=== PATIENT | female | born 1990 | race Caucasian/White ===

== ENCOUNTER → 2021-06-21 14:39 | Outpatient (BNVA) | payer MEDICAID, SELFPAY | PROVIDERS: Visit Provider Nurse Practitioner | DX: R39.9 Unspecified symptoms and signs involving the genitourinary system (principal); N89.8 Other specified noninflammatory disorders of vagina | CPT/HCPCS: 81000; 87491; 87591; 87661 ==

== ENCOUNTER → 2022-02-27 09:07 | Outpatient (BNVA) | payer MEDICAID, SELFPAY | PROVIDERS: Referring Provider Family Medicine; Visit Provider Nurse Practitioner | DX: G40.909 Epilepsy, unspecified, not intractable, without status epilepticus (principal); G43.909 Migraine, unspecified, not intractable, without status migrainosus; G62.9 Polyneuropathy, unspecified | CPT/HCPCS: 99204 ==

== ENCOUNTER 2022-02-27 13:38 | Emergency (ER) | payer MEDICAID, SELFPAY ==
--- NOTE | 2022-02-27 13:43 | XR_ITS ---
WS: [id number] Chest 2 views, 02/27/2022 Clinical Data: cp and dyspnea Comparison: None. Findings: No nodules or masses are seen. There is a tiny left pleural effusion The heart is normal. T he pulmonary vascularity is not increased. No pneumonia or pneumothorax is seen. XR/XR chest 2V* 15286 Impression: Small left pleural effusion.
[2022-02-27 13:44] VITALS: BP 147/83; PULSE 102; RESP 16; TEMP 36.8; O2SAT 91
--- NOTE | 2022-02-27 13:44 | ECG_ITS ---
[facility] Test Date: 2022-02-27 Pat Name: Delma Gibbons Department: Room: Gender: Female Relay Adjuster: : 1990 Requested By: Dariel Valdez Order Number: [id number] Theresa MD: Daysi Berger M.D. Measurements Intervals [place] Rate: 77 P: 72 ND: 132 QRS: 78 QRSD: 78 T: 69 QT: 353 QTc: 401 Interpretive Statements SINUS RHYTHM WITH SINUS ARRHYTHMIA NONSPECIFIC ST & T-WAVE ABNORMALITY No previous ECG available for comparison Electronically Signed On 02-27-2022 19:44:46 CDT by Daysi Berger M.D. [id number]
--- NOTE | 2022-02-27 14:51 | ED_ITS ---
HPI - General Adult General: Chief complaint: Shortness of Breath/Dyspnea Stated complaint: chest pains and sob Time Seen by Provider: 02/27/22 14:50 History of Present Illness: Patient is a 31-year-old female with a history of asthma presenting to the emergency room with concerns of cough and wheezing x2 days. Patient tells me that her child is sick at home. And she has been developing symptoms last 2 days. Denies any fever chills, productive phlegm, chest pain shortness of breath, palpitation nausea/vomiting, diarrhea melena hematochezia. Patient like to be tested for COVID today. Onset:2 days ago Duration:2 days Location:home Severity:mild Associated symptoms: Deny chest pain, dyspnea, nausea, rash, palpitations or vomiting Review of Systems Const: Denies: fever(s) or chills Eyes: Denies: change in vision ENMT: Denies: mouth pain Card: Denies: chest pain or palpitations Resp: Reports: non-productive cough and other (+wheezing); Denies: dyspnea GI: Denies: abdominal pain, nausea, vomiting or diarrhea : Denies: dysuria Musc: Denies: extremity pain Skin/Breast: Denies: rash or new lesions Neuro: Denies: weakness in extremities Psych: Reports: other (Normal mood) Marciano/Lymph: Denies: easy bruising PFS ED PFSH: Medical History Migraine Neuropathy Social History Smoking and tobacco status: never smoked Alcohol intake: never History of recent travel: No Physical Exam Const: COMMON NORMALS: alert HENMT: COMMON NORMALS: atraumatic HEAD & SCALP: atraumatic MOUTH: moist mucous membranes not abnormal Eye: COMMON NORMALS: EOMs intact bilaterally and conjunctivae normal CONJUNCTIVA: Yes conjunctivae normal Neck/C-Spine: COMMON NORMALS: full ROM and supple Resp: COMMON NORMALS: normal respiratory effort OTHER: +wheezes b/l throughout the lung theodore Cardio: COMMON NORMALS: regular rate RATE: regular rate GI: COMMON NORMALS: Soft to palpation and non-tender PALPATION: Yes Soft to palpation Extremity: COMMON NORMALS: full ROM Neuro: SENSORIUM/ORIENTATION: Yes alert MOTOR EXAM: No Abnormal motor strength present and Other motor observations present (no focal motor deficits) Psych: COMMON NORMALS: speech normal SPEECH: Yes normal speech MOOD & AFFECT: Yes euthymic mood Course Vital Signs: Vital signs: Vital Signs Temperature 98.2 F 02/27/22 13:44 Pulse Rate 148 H 02/27/22 15:55 Respiratory Rate 16 02/27/22 15:20 Blood Pressure 124/78 02/27/22 15:55 Pulse Oximetry 92 02/27/22 15:55 [facility] - General Adult Medical Decision Making 31-year-old female with history of asthma presenting to the emergency room with wheezing and cough x2 days. On physical exam, patient does have bilateral wheezes. No increased work of breathing or signs of desaturation. Hemodynamically stable. Patient received DuoNeb treatment reports wheezing is improved. Swab sent. XR chest clear. Patient instructed follow-up with the swabs at home. Patient request for prescription for albuterol be given today. Given child sick at home, symptoms likely mild asthma exacerbation with viral symptoms. Rx tylenol PRN fever and pain, albuterol PRN wheezing Disposition: Discharge. Patient counseled regarding diagnostic impression, treatment plan. Patient given ED strict return precautions to return for continuation, worsening, or development of new symptoms. Instructed to f/u w/ PCP regarding symptoms today. Patient verbalized understanding. Lab Data Radiology Impressions Chest X-Ray 02/27/22 13:43 Impression: Small left pleural effusion. Laboratory Results Nasal Influ A H1 2008 PCR Not detected (NOT DETECT) 02/27/22 15:14 Coronavirus 229E (PCR) Not detected (NOT DETECT) 02/27/22 15:14 Human Metapneumovir PCR Not detected (NOT DETECT) 02/27/22 17:39 Influenza A (H1) PCR Not detected (NOT DETECT) 02/27/22 15:14 Influenza A (H3) PCR Not detected (NOT DETECT) 02/27/22 15:14 Influenza Type A (PCR) Not detected (NOT DETECT) 02/27/22 15:14 Influenza Type B (PCR) Not detected (NOT DETECT) 02/27/22 15:14 Entero/Rhino (PCR) Detected (NOT DETECT) A 02/27/22 17:39 SARS-CoV-2 (PCR) Not detected (NOT DETECT) 02/27/22 15:14 Imaging Data Other Imaging: Radiologist's impression: [facility] [address] [place] [address] XRay Report Signed Patient: Delma Gibbons Unit #: [id number] : 1990 Age/Sex: 31 / F ADM Date: 02/27/22 Loc: ER Room/Bed: Attending Dr: Ordering Provider/Ordering MD: Dariel Valdez MD Date of Service: 02/27/22 Procedure(s): XR chest 2V* 91686 Accession Number(s): [id number] Report Number: [id number] WS: [id number] Chest 2 views, 02/27/2022 Clinical Data: cp and dyspnea Comparison: None. Findings: No nodules or masses are seen. There is a tiny left pleural effusion The heart is normal. The pulmonary vascularity is not increased. No pneumonia or pneumothorax is seen. XR/XR chest 2V* [id number] Impression: Small left pleural effusion. ? ? Dictated By: Kimi Clark MD Signed By: Kimi Clark MD Signed Date/Time: 02/27/221424 DD/ 23 Discharge Plan Discharge Patient Disposition: Home Clinical Impression: Cough, Wheezing Condition: Stable Discharge Orders: Discharge ED (Routine); Ordered 02/27/22 Ordered By: Dariel Valdez Referrals: Rosalee Ryan MD [Primary Care Provider] - Discharge Diet: Advance as tolerated Discharge Activity: Increase activity as tolerated Patient Instructions: Acute Cough (ED) Activity Restrictions/Additional Instructions: Come back to the emergency room if your symptoms worsen, have any shortness of breath, fever/chills, dehydration, inability tolerate food or drinks, any difficulty breathing, or any new or concerning complaints. Stand Alone Forms: Work/School Release Coding Level of Care Code ED Silver Wrapper for Elíasg Fwd Exam Comprehensive
[2022-02-27] MEDS: acetaminophen 500 mg Tablet PO (15:11)
[2022-02-27] MEDS: ipratropium-albuterol 3 mL Neb INHALATION ×3 (15:17)
[2022-02-27 15:20] VITALS: PULSE 90; RESP 16; O2SAT 93
[2022-02-27 15:30] VITALS: PULSE 120
[2022-02-27 15:55] VITALS: BP 124/78; PULSE 148; O2SAT 92
[2022-02-27 17:18] LABS: Adenovirus Not Detected (NOT DETECT); Chlamydia Pneumoniae Not Detected (NOT DETECT); Coronavirus 229E,HKU1,NL63,OC4 Not Detected (NOT DETECT); Human Metapneumovirus Not Detected (NOT DETECT); Human Rhinovirus/Enterovirus Detected (NOT DETECT); Influenza A Not Detected (NOT DETECT); Influenza A H1 Not Detected (NOT DETECT); Influenza A H1-2009 Not Detected (NOT DETECT); Influenza A H3 Not Detected (NOT DETECT); Influenza B Not Detected (NOT DETECT); Mycoplasma Pneumoniae Not Detected (NOT DETECT); Parainfluenza Virus Type 1 Not Detected (NOT DETECT); Parainfluenza Virus Type 2 Not Detected (NOT DETECT); Parainfluenza Virus Type 3 Not Detected (NOT DETECT); Parainfluenza Virus Type 4 Not Detected (NOT DETECT); Respiratory Syncytial Virus A Not Detected (NOT DETECT); Respiratory Syncytial Virus B Not Detected (NOT DETECT); SARS-COV-2 Not Detected (NOT DETECT)
[2022-02-27 17:39] LABS: Influenza A Not Detected (NOT DETECT); Influenza A H1 Not Detected (NOT DETECT); Influenza A H1-2009 Not Detected (NOT DETECT); Influenza A H3 Not Detected (NOT DETECT); Influenza B Not Detected (NOT DETECT); Results from Genmark
[2022-02-27 17:39] LABS: Human Metapneumovirus Not Detected (NOT DETECT); Human Rhinovirus/Enterovirus Detected (NOT DETECT); Results from Genmark
== END 2022-02-27 15:56 | disposition home or self-care (01) ==
PROVIDERS: Emergency Provider Emergency Medicine; PCP Family Medicine
DX: J90 Pleural effusion, not elsewhere classified (principal); J45.909 Unspecified asthma, uncomplicated; R05.9 Cough, unspecified; R06.2 Wheezing
CPT/HCPCS: 71046; 80053; 82607; 82746; 83921; 84443; 85025; 85651; 86140; 86334; 87631; 87635; 87801; 93005; 94640; 99283

== ENCOUNTER 2022-05-25 01:24 | Inpatient (IN) | payer MEDICAID, SELFPAY ==
[2022-05-25 01:27] VITALS: BP 124/82; PULSE 72; RESP 18; TEMP 36.5; O2SAT 97; BMI 23.8
[2022-05-25 02:14] LABS: Basophils # 0.1 10^3/uL (0.0-0.1); Basophils % 0.7 %; Eosinophils # 0.2 10^3/uL (0.0-0.8); Eosinophils % 3.1 %; Hematocrit 41.1 % (37.0-47.0); Hemoglobin 13.9 g/dL (11.5-15.3); Lymphocytes # 1.9 10^3/uL (0.8-4.8); Lymphocytes % 27.3 %; Mean Corpuscular HGB Conc 33.8 g/dL (30.0-36.0); Mean Corpuscular Hemoglobin 30.6 pg (28.0-34.0); Mean Corpuscular Volume 90.5 fl (81-99); Mean Platelet Volume 10.2 fL (7.4-10.4); Monocytes # 0.4 10^3/uL (0.2-0.9); Monocytes % 5.4 %; Neutrophils # 4.34 10^3/uL (1.8-7.7); Neutrophils % 63.4 %; Nucleated Red Blood Cells % 0 %; Platelet Count 156 10^3/cmm (130-400); Red Blood Count 4.54 10^6/uL (4.1-5.3); Red Cell Distribution Width 11.9 % (12.1-15.1); White Blood Count 6.9 10^3/uL (4.0-10.0)
[2022-05-25 02:26] LABS: Amphetamines Screen Urine Negative (Negative); Barbiturates Screen Urine Negative (Negative); Benzodiazepines Screen Urine Negative (Negative); Cocaine Screen Urine Negative (Negative); Opiate Screen Urine Negative (Negative); PCP Screen Urine Negative (Negative); THC Screen Urine Positive (Negative)
[2022-05-25 02:29] LABS: HCG Qualitative Urine. Negative (Negative)
[2022-05-25 02:36] LABS: Alanine Aminotransferase 11 U/L (0-33); Albumin Level 4.6 g/dL (3.5-5.2); Alkaline Phosphatase 53 U/L (35-105); Anion Gap 13.8 (5-19); Aspartate Amino Transferase 17 U/L (0-32); Blood Urea Nitrogen 10 mg/dL (6-20); Carbon Dioxide 29 mmol/L (22-29); Chloride 103 mmol/L (98-107); Globulin 2.3 g/dL (1.3-4.6); Glomerular Filtration Rate 116.6 mL/min (90-130); Glucose 92 mg/dL (65-115); Osmolality Calculated 293 mOsm/kg (285-295); Potassium 3.8 mmol/L (3.5-5.1); Salicylate 0.4 mg/dL (3-10); Sodium 142 mmol/L (136-145); Total Bilirubin 0.8 mg/dL (0.15-1.2); Total Protein 6.9 g/dL (6.6-8.7)
[2022-05-25 02:42] LABS: Acetaminophen < 5.0 ug/mL (10-30); Alcohol Level < 10 mg/dL (0-10)
[2022-05-25 02:44] LABS: Add Urine Microscopic? YES; Bilirubin Urine 1+ (Negative); Blood Urine Neg (Negative); Glucose Urine UA Norm (Normal); Ketones Urine 1+ (Negative); Leukocyte Esterase Urine Negative (Negative); Nitrate Urine Negative (Negative); Protein Urine 1+ (Negative); Urine Appearance Clear (CLEAR); Urine Color Dark Yellow (Yellow); Urobilinogen Urine 1 mg/dL (Negative); pH Urine 5 (5-7)
[2022-05-25 02:45] LABS: Add Urine Culture? No; Bacteria Urine 2+ /hpf; Mucus Urine 2+ /hpf; RBC Urine 0-4 /hpf (0-2)
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
[2022-05-25 06:15] VITALS: BP 109/70; PULSE 64; RESP 18; TEMP 36.3; O2SAT 99
--- NOTE | 2022-05-25 07:23 | PC.NURSE ---
PT IS RESTING QUIETLY ON LEFT SIDE WITH EYES CLOSED. PT HAS GOOD CHEST RISE AND FALL. SITTER REMAINS AT BEDSIDE.
--- NOTE | 2022-05-25 08:38 | PC.NURSE ---
PT AWAKENED VIA VERBALIZE STIMULI AND OFFERED BREAKFAST TRAY. PT VERBALIZED UNDERSTANDING.
--- NOTE | 2022-05-25 10:08 | PC.NURSE ---
WHILE AT DOORWAY PT IS RESTING QUIETLY SUPINE IN BED WITH EYES CLOSED. PT HAS GOOD CHEST RISE AND FALL.
--- NOTE | 2022-05-25 11:30 | PC.NURSE ---
provided pt with cell phone per dr. darren rios.
--- NOTE | 2022-05-25 16:20 | PC.NURSE ---
REPORT CALLED TO JACOBY XAVIER.
[2022-05-25 16:33] VITALS: BP 116/56; PULSE 68; O2SAT 96
[2022-05-25] MEDS: OLANZapine 5 mg ODT PO (17:23)
[2022-05-25 17:45] VITALS: BP 166/71; PULSE 79; RESP 18; TEMP 36.6; O2SAT 97
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
[2022-05-25 20:09] VITALS: BP 109/72; PULSE 60; RESP 16; TEMP 36.7; O2SAT 99
[2022-05-26 06:00] VITALS: BP 98/61; PULSE 82; RESP 16; TEMP 36.7; O2SAT 97
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
[2022-05-26] MEDS: ondansetron 4 MG Tablet PO (09:37)
[2022-05-26] MEDS: OLANZapine 5 mg ODT PO (09:37)
[2022-05-26] MEDS: fluoxetine 20 mg Capsule PO ×2 (09:37→16:28)
[2022-05-26 14:00] VITALS: BP 90/63; PULSE 79; RESP 16; TEMP 36.6; O2SAT 98
[2022-05-26 20:56] VITALS: BP 110/73; PULSE 60; RESP 22; O2SAT 98
[2022-05-27 06:00] VITALS: BP 92/54; PULSE 56; RESP 18; TEMP 36.7; O2SAT 100
[2022-05-27] MEDS: fluoxetine 20 mg Capsule PO (08:33)
[2022-05-27] MEDS: hyDROXYzine 25 mg Capsule 50 MG PO (13:02)
--- NOTE | 2022-05-27 13:13 | PC.NURSE ---
PRN PT REQUESTED MEDICATION FOR ANXIETY. PT WAS GIVEN VISTERIL.
[2022-05-27 14:00] VITALS: BP 108/79; PULSE 59; RESP 18; TEMP 36.6; O2SAT 98
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
[2022-05-27 20:39] VITALS: BP 115/75; PULSE 61; RESP 20; TEMP 36.8; O2SAT 98
[2022-05-28 06:00] VITALS: BP 93/59; PULSE 78; RESP 18; TEMP 36.8; O2SAT 95
[2022-05-28] MEDS: fluoxetine 10 mg Capsule 30 MG PO (08:15)
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
[2022-05-28 14:35] VITALS: BP 93/59; PULSE 78; RESP 18; TEMP 36.8; O2SAT 95
== END 2022-05-28 15:16 | disposition home or self-care (01) | DRG 881 ==
LOC: ER 03:23 → ER IP 14:54 → NP 16:25
PROVIDERS: Admitting Provider Psychiatry & Neurology Psychiatry; Emergency Provider Emergency Medicine; PCP Family Medicine; Visit Provider Psychiatry & Neurology Psychiatry
DX: F32.A Depression, unspecified (principal); R45.851 Suicidal ideations; F41.9 Anxiety disorder, unspecified; R45.850 Homicidal ideations; G43.909 Migraine, unspecified, not intractable, without status migrainosus; G62.9 Polyneuropathy, unspecified; Z63.0 Problems in relationship with spouse or partner; F43.10 Post-traumatic stress disorder, unspecified; Z81.8 Family history of other mental and behavioral disorders; Z81.4 Family history of other substance abuse and dependence; Z62.811 Personal history of psychological abuse in childhood; Z91.410 Personal history of adult physical and sexual abuse
CPT/HCPCS: 80053; 80306; 80307; 81001; 81025; 85025; 87491; 87591; 97150; 97165; 99285; Q0162

== ENCOUNTER 2022-07-29 21:52 | Emergency (ER) | payer MEDICAID, SELFPAY ==
[2022-07-29 22:00] VITALS: BP 98/66; PULSE 60; RESP 16; TEMP 37; O2SAT 97
[2022-07-30 00:04] VITALS: BP 100/68; PULSE 60; RESP 16; TEMP 37; O2SAT 97
--- NOTE | 2022-07-30 00:08 | W.ED.GENADLT ---
HPI - General Adult General: Chief complaint: General Medical Stated complaint: possible seizure Time Seen by Provider: 07/29/22 23:25 Source: patient Mode of arrival: ambulatory Limitations: no limitations History of Present Illness: 22-year-old female has a history of anxiety she states she forgot to take her Prozac yesterday and she has felt anxious today and has had 4 panic attacks today. She states that she is scared she may have a seizure she has a history of seizures well but denies any seizures denies headache denies chest pain patient's resting currently states she does feel improved currently she states she took a prozac today Associated symptoms: Deny chest pain, dyspnea, headache(s), nausea, rash or vomiting Review of Systems Const: Denies: fever(s), chills, body aches or change in appetite Eyes: Denies: blurry vision or eye discomfort ENMT: Denies: throat pain or dental pain Card: Denies: chest pain Resp: Denies: dyspnea GI: Denies: abdominal pain, nausea, vomiting or diarrhea : Denies: dysuria Musc: Denies: neck pain or back pain Skin/Breast: Denies: rash Neuro: Denies: headache(s) Psych: Reports: anxiety; Denies: depression [place]/Lymph: Denies: easy bruising All/Imm: Denies: urticaria PFSH ED PFSH: Medical History Migraine Neuropathy Social History Smoking and tobacco status: never smoked Alcohol intake: never History of recent travel: No Female Reproductive History: Date of last menstrual period: 05/23/22 Physical Exam Const: COMMON NORMALS: no acute distress, patient oriented x3 and healthy appearing HENMT: COMMON NORMALS: normocephalic and atraumatic HEAD & SCALP: normocephalic and atraumatic Eye: COMMON NORMALS: Equal, round and reactive pupils present and EOMs intact bilaterally PUPIL: Yes Equal, round and reactive pupils present Neck/C-Spine: COMMON NORMALS: full ROM and supple Chest: COMMONS NORMALS: normal inspection of the chest and normal palpation of entire chest wall Resp: COMMON NORMALS: normal respiratory effort, No retractions, No use of accessory muscles and clear to auscultation bilaterally AUSCULTATION: clear to auscultation bilaterally Cardio: COMMON NORMALS: regular rate, regular rhythm and No murmurs present (Cardio) RATE: regular rate RHYTHM: regular rhythm GI: COMMON NORMALS: Normal to inspection, nondistended, normoactive bowel sounds present, Soft to palpation, non-tender and no masses PALPATION: Yes Soft to palpation Extremity: COMMON NORMALS: normal to inspection and full ROM Neuro: COMMON NORMALS: patient oriented x3, moves all extremities and no focal motor deficits Psych: COMMON NORMALS: mental status grossly normal, Normal thought process present and cooperative THOUGHT PROCESS: Normal thought process present Skin: COMMON NORMALS: no rashes or lesions noted and no wounds GENERAL SKIN EXAM: no rashes or lesions noted Course Vital Signs: Vital signs: Vital Signs Temperature 98.6 F 07/29/22 22:00 Pulse Rate 60 07/29/22 22:00 Respiratory Rate 16 07/29/22 22:00 Blood Pressure 98/66 07/29/22 22:00 Pulse Oximetry 97 07/29/22 22:00 [facility] - General Adult Medical Decision Making Patient presents here with anxiety she is well-appearing here she is had any seizures it sounds like she is having a headache she stable for discharge she is follow-up with PCP and return if worsening. Discharge Plan Discharge Patient Disposition: Home Clinical Impression: Anxiety Condition: Stable Prescriptions: No Action fluoxetine 10 mg Capsule 30 mg PO DAILY 30 Days Qty: 90 1RF Prozac 10 mg capsule 30 mg PO DAILY Qty: 90 1RF Discharge Orders: Discharge ED (Routine); Ordered 07/30/22 Ordered By: José Miguel Bean Referrals: Rosalee Ryan MD [Primary Care Provider] - 1-3 days Discharge Diet: Advance as tolerated Discharge Activity: Resume usual activity Patient Instructions: Anxiety (ED) Coding Level of Care Code ED Baking Assistant for Chg Fwd Exam Comprehensive
[2022-07-30] MEDS: LORazepam 1 mg Tablet PO (00:25)
[2022-07-30 00:27] VITALS: BP 100/68; PULSE 60; RESP 16; TEMP 37; O2SAT 97
== END 2022-07-30 00:40 | disposition home or self-care (01) ==
PROVIDERS: Emergency Provider Emergency Medicine; PCP Family Medicine
DX: F41.9 Anxiety disorder, unspecified (principal)
CPT/HCPCS: 99283

== ENCOUNTER → 2022-12-02 09:00 | Outpatient (BNVA) | payer MEDICAID, SELFPAY | PROVIDERS: PCP Family Medicine; Visit Provider Obstetrics & Gynecology | DX: Z30.9 Encounter for contraceptive management, unspecified (principal) | CPT/HCPCS: 87070; 87205; 87624 ==

== ENCOUNTER 2022-12-26 14:11 | Outpatient (CLI) | payer MEDICAID, SELFPAY ==
--- NOTE | 2022-12-26 14:20 | MM_ITS ---
WS: [id number] BILATERAL 3D TOMOSYNTHESIS DIGITAL DIAGNOSTIC MAMMOGRAPHY WITH CAD CLINICAL INFORMATION: LT BREAST MASS HISTORY: Palpable lump LEFT breast COMPARISON: None. TECHNIQUE: Bilateral CC, MLO, and ML views. FINDINGS: The breasts are composed of heterogeneous fibroglandular density, which can limit the detection of sm all underlying mass lesions. Palpable marker upper outer LEFT breast in the area of concern. No defin ite underlying parenchymal abnormalities in this area. Ultrasound described below. 2 punctate and sec retory calcifications. Unremarkable RIGHT breast. ULTRASOUND BREAST LEFT TECHNIQUE: Ultrasound LEFT breast focused area of concern. CLINICAL INFORMATION: LT BREAST MASS FINDINGS: Ultrasound LEFT breast in the area of concern at the 1:00 position 3 cm from the nipple. Normal under lying parenchymal tissue. No cystic or solid lesions. No suspicious lesions to target for biopsy. Inc idental vessel seen in this area 1:00 position 3 cm from the nipple. MM/[place] [id number] IMPRESSION: BI-RADS: 2-Benign FOLLOW UP: Age 41 Recommend annual screening mammography age 40
== END 2022-12-26 14:12 | disposition home or self-care (01) ==
LOC: RAD 14:15
PROVIDERS: PCP Family Medicine; Visit Provider Obstetrics & Gynecology
DX: N63.20 Unspecified lump in the left breast, unspecified quadrant (principal)
CPT/HCPCS: 76642; 77062; G0279

== ENCOUNTER 2023-07-15 20:49 | Emergency (ER) | payer MEDICAID, SELFPAY ==
[2023-07-15] VITALS (8 sets, daily range): BP systolic 110–121; BP diastolic 63–81; PULSE 73–106; RESP 18–20; TEMP 36.8; O2SAT 90–100; BMI 24.6
--- NOTE | 2023-07-15 20:57 | XRR_ITS ---
PROCEDURE INFORMATION: Exam: XR Chest Exam date and time: 07/15/2023 9:16 PM Age: 33 years old Clinical indication: Shortness of breath; Additional info: SOB TECHNIQUE: Imaging protocol: Radiologic exam of the chest. Views: 1 view. COMPARISON: CR XR chest 2V* [id number] 02/27/2022 2:20 PM FINDINGS: Lungs: Lungs are clear bilaterally. Pleural spaces: No pleural effusion. No pneumothorax. Heart/Mediastinum: The cardiac silhouette and mediastinal contours are unremarkable. Bones/joints: Unremarkable for age. XR/XR chest 1V portable [id number] IMPRESSION: Negative chest radiograph.
[2023-07-15 22:13] LABS: Basophils # 0.1 10^3/uL (0.0-0.1); Basophils % 0.8 %; Eosinophils # 0.4 10^3/uL (0.0-0.8); Eosinophils % 6.8 %; Hematocrit 39.1 % (36-47); Lymphocytes # 1.5 10^3/uL (0.8-4.8); Lymphocytes % 24.3 %; Mean Corpuscular HGB Conc 34.3 g/dL (30-55); Mean Corpuscular Volume 87.7 fl (85-98); Mean Platelet Volume 9.8 fL (7.4-10.4); Monocytes # 0.5 10^3/uL (0.2-0.9); Neutrophils # 3.61 10^3/uL (1.8-7.7); Neutrophils % 59.9 %; Nucleated Red Blood Cells % 0 %; Platelet Count 173 10^3/cmm (157-399); Red Blood Count 4.46 10^6/uL (3.85-5.65); Red Cell Distribution Width 12.2 % (12.1-15.1); White Blood Count 6.02 10^3/uL (3.29-11.43)
[2023-07-15 22:35] LABS: Alanine Aminotransferase 12 U/L (0-33); Albumin Level 4.4 g/dL (3.5-5.2); Alkaline Phosphatase 70 U/L (35-105); Anion Gap 13.3 (5-19); Aspartate Amino Transferase 22 U/L (0-32); Blood Urea Nitrogen 17 mg/dL (6-20); Calcium 9.8 mg/dL (8.5-10.5); Carbon Dioxide 30 mmol/L (22-29); Chloride 103 mmol/L (98-107); Glucose 90 mg/dL (65-115); Osmolality Calculated 297 mOsm/kg (285-295); Potassium 3.3 mmol/L (3.5-5.1); Sodium 143 mmol/L (136-145); Total Bilirubin 0.5 mg/dL (0.15-1.2); Total Protein 7.4 g/dL (6.6-8.7)
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
[2023-07-15] MEDS: dexamethasone 10 mg/mL INJ IM (22:50)
[2023-07-15 23:00] LABS: SARS Covid-2 Antigen negative (Negative)
[2023-07-15] MEDS: ipratropium-albuterol 3 mL Neb INHALATION (23:01)
[2023-07-15] MEDS: albuterol 2.5 mg/3 mL Neb 5 MG INHALATION (23:29)
== END 2023-07-15 23:59 | disposition home or self-care (01) ==
PROVIDERS: Emergency Provider Emergency Medicine; PCP Family Medicine
DX: J45.901 Unspecified asthma with (acute) exacerbation (principal); Z11.52 Encounter for screening for COVID-19
CPT/HCPCS: 36415; 71045; 80053; 85025; 87426; 94640; 96372; 99284; J1100; J7613

== ENCOUNTER 2023-07-18 11:11 | Emergency (ER) | payer MEDICAID, SELFPAY ==
[2023-07-18 11:40] VITALS: BP 120/68; PULSE 68; RESP 18; TEMP 36.6; O2SAT 97; BMI 25.3
--- NOTE | 2023-07-18 11:42 | XR_ITS ---
WS: [id number] Portable AP upright chest, 07/18/2023 Clinical Data: dyspnea/cough Comparison: Portable chest, 07/15/2023 Findings: No nodules, masses or effusions are seen. The heart is normal. The pulmonary vascularity is not increased. No pneumonia or pneumothorax is seen. Impression: Negative chest.
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
[2023-07-18 11:58] LABS: Basophils # 0.1 10^3/uL (0.0-0.1); Basophils % 1.3 %; Eosinophils # 0.6 10^3/uL (0.0-0.8); Eosinophils % 9.8 %; Hematocrit 39.9 % (36-47); Lymphocytes # 2.2 10^3/uL (0.8-4.8); Lymphocytes % 34.4 %; Mean Corpuscular HGB Conc 33.8 g/dL (30-55); Mean Corpuscular Hemoglobin 29.7 pg (27-33); Mean Corpuscular Volume 87.7 fl (85-98); Mean Platelet Volume 9.9 fL (7.4-10.4); Monocytes # 0.4 10^3/uL (0.2-0.9); Monocytes % 6.2 %; Neutrophils # 3.03 10^3/uL (1.8-7.7); Neutrophils % 48.1 %; Nucleated Red Blood Cells % 0 %; Platelet Count 183 10^3/cmm (157-399); Red Blood Count 4.55 10^6/uL (3.85-5.65); Red Cell Distribution Width 12.3 % (12.1-15.1)
[2023-07-18 12:01] LABS: Add Urine Culture? No; Add Urine Microscopic? YES; Bacteria Urine 1+ /hpf; Bilirubin Urine Neg (Negative); Blood Urine Neg (Negative); Glucose Urine UA Norm (Normal); Ketones Urine Negative (Negative); Leukocyte Esterase Urine Negative (Negative); Nitrate Urine Negative (Negative); Protein Urine Neg (Negative); RBC Urine 0-4 /hpf (0-2); Specific Gravity, Urine 1.005 (1.005-1.030); Urine Appearance SL Hazy (CLEAR); Urine Color Yellow (Yellow); Urobilinogen Urine Norm (Negative); WBC Urine 0-4 /hpf (0-5); pH Urine 7 (5-7)
[2023-07-18] MEDS: ketorolac 30 mg/mL INJ IVP (12:03)
[2023-07-18] MEDS: dexamethasone 10 mg/mL INJ IM (12:03)
[2023-07-18] MEDS: sodium chloride 0.9% 1,000 ML 999 ML IV (12:03)
[2023-07-18 12:12] LABS: Alanine Aminotransferase 14 U/L (0-33); Albumin Level 4.1 g/dL (3.5-5.2); Alkaline Phosphatase 64 U/L (35-105); Anion Gap 12.7 (5-19); Aspartate Amino Transferase 21 U/L (0-32); Blood Urea Nitrogen 11 mg/dL (6-20); Calcium 9.4 mg/dL (8.5-10.5); Carbon Dioxide 30 mmol/L (22-29); Chloride 103 mmol/L (98-107); Globulin 2.6 g/dL (1.3-4.6); Glucose 91 mg/dL (65-115); Osmolality Calculated 293 mOsm/kg (285-295); Potassium 3.7 mmol/L (3.5-5.1); Sodium 142 mmol/L (136-145); Total Bilirubin 0.7 mg/dL (0.15-1.2); Total Protein 6.7 g/dL (6.6-8.7)
[2023-07-18 12:16] LABS: HCG, Serum Qual Negative (Negative)
[2023-07-18] MEDS: ipratropium-albuterol 3 mL Neb INHALATION (12:45)
[2023-07-18 12:46] VITALS: PULSE 67; RESP 16; O2SAT 96
[2023-07-18 12:49] VITALS: PULSE 70
== END 2023-07-18 13:00 | disposition home or self-care (01) ==
PROVIDERS: Emergency Provider Family Medicine; PCP Family Medicine
DX: J45.901 Unspecified asthma with (acute) exacerbation (principal); R10.30 Lower abdominal pain, unspecified
CPT/HCPCS: 71045; 80053; 81001; 84703; 85025; 94640; 96361; 96372; 96374; 99284; J1100; J1885; J7030

== ENCOUNTER 2024-08-24 11:25 | Emergency (ER) | payer MEDICAID, SELFPAY ==
[2024-08-24 11:29] VITALS: PULSE 98; RESP 20; O2SAT 98
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
[2024-08-24] MEDS: levETIRAcetam 1,000 MG/100 ML PREMIX 400 MG IV (11:38)
--- NOTE | 2024-08-24 12:20 | PC.PHAR ---
patient unable to verify, called pharmacy they havent filled anything in over a year and that was just an albuterol inhaler and hydroxyzine 25mg for itching
[2024-08-24 12:43] LABS: Basophils % 0.6 %; Eosinophils # 0.2 10^3/uL (0.0-0.8); Eosinophils % 3.3 %; Hematocrit 33.3 % (36-47); Lymphocytes # 0.8 10^3/uL (0.8-4.8); Lymphocytes % 15.5 %; Mean Corpuscular HGB Conc 32.1 g/dL (30-55); Mean Corpuscular Hemoglobin 26.8 pg (27-33); Mean Corpuscular Volume 83.3 fl (85-98); Mean Platelet Volume 10.5 fL (7.4-10.4); Monocytes # 0.2 10^3/uL (0.2-0.9); Monocytes % 3.7 %; Neutrophils # 3.66 10^3/uL (1.8-7.7); Neutrophils % 75.9 %; Nucleated Red Blood Cells % 0 %; Platelet Count 164 10^3/cmm (157-399); Red Cell Distribution Width 13.4 % (12.1-15.1); White Blood Count 4.83 10^3/uL (3.29-11.43)
[2024-08-24] MEDS: ketorolac 30 mg/mL INJ 15 MG IVP (12:51)
[2024-08-24 13:00] LABS: Alanine Aminotransferase 10 U/L (0-33); Albumin Level 3.9 g/dL (3.5-5.2); Alkaline Phosphatase 48 U/L (35-105); Aspartate Amino Transferase 21 U/L (0-32); Blood Urea Nitrogen 8 mg/dL (6-20); Calcium 8.6 mg/dL (8.5-10.5); Carbon Dioxide 25 mmol/L (22-29); Chloride 103 mmol/L (98-107); Globulin 2.4 g/dL (1.3-4.6); Glomerular Filtration Rate 142.1 mL/min (90-130); Glucose 100 mg/dL (65-115); Osmolality Calculated 282 mOsm/kg (285-295); Sodium 137 mmol/L (136-145); Total Bilirubin 0.4 mg/dL (0.15-1.2); Total Protein 6.3 g/dL (6.6-8.7)
[2024-08-24 13:04] VITALS: BP 97/60; PULSE 84; O2SAT 98
[2024-08-24 13:04] LABS: Anion Gap 13.2 (5-19); Potassium 4.2 mmol/L (3.5-5.1)
--- NOTE | 2024-08-24 13:10 | CTR_ITS ---
PROCEDURE INFORMATION: Exam: CT Head Without Contrast Exam date and time: 08/24/2024 1:25 PM Age: 34 years old Clinical indication: Other: Seizure TECHNIQUE: Imaging protocol: Computed tomography of the head without contrast. Radiation optimization: All CT scans at this facility use at least one of these dose optimization techniques: automated exposure control; mA and/or kV adjustment per patient size (includes targeted exams where dose is matched to clinical indication); or iterative reconstruction. COMPARISON: No relevant prior studies available. RADIATION DOSE METRICS: Total DLP (mGy-cm): 1082.88 FINDINGS: Brain: No acute intracranial hemorrhage or mass effect. Cerebral ventricles: Size within normal range for age. No midline shift. Paranasal sinuses: Visualized portions of paranasal sinuses are well aerated. Mastoid air cells: Visualized portions of mastoid sinuses are not opacified. Bones: Unremarkable. No acute fracture. Soft tissues: Other than as stated above, no obvious acute abnormality. CT/CT head wo con* [id number] IMPRESSION: No acute intracranial hemorrhage or mass effect.
[2024-08-24 13:12] LABS: HCG, Serum Qual Negative (Negative)
[2024-08-24] MEDS: diphenhydrAMINE 50 mg/mL SDV 1mL IVP (13:22)
[2024-08-24] MEDS: metoclopramide 5 mg/mL SDV 2 mL 10 MG IVP (13:22)
[2024-08-24 13:57] VITALS: BP 91/60; PULSE 77; O2SAT 93
[2024-08-24 14:00] VITALS: TEMP 36.4
--- NOTE | 2024-08-26 07:31 | DCPLANNER ---
messaged neuro for er f/u
== END 2024-08-24 14:02 | disposition home or self-care (01) ==
PROVIDERS: Emergency Provider Emergency Medicine; PCP Family Medicine
DX: G40.89 Other seizures (principal)
CPT/HCPCS: 36415; 70450; 80053; 84703; 85025; 96365; 96375; 99285; J1200; J1885; J1953; J2765

== ENCOUNTER 2024-11-16 10:07 | Outpatient (CLI) | payer MEDICAID, SELFPAY ==
--- NOTE | 2024-11-16 10:15 | MR_ITS ---
WS: [id number] MRI HEAD WITHOUT CONTRAST TECHNIQUE: Sagittal T1, T2 axial, T2 axial FLAIR, axial and coronal T1 images, axial susceptibility weighted imaging, axial diffusion weighted images, and coronal T2 images were obtained. CLINICAL INFORMATION: R56.9 - Unspecified convulsions COMPARISON: CT 08/24/2024 FINDINGS: No evidence of restricted diffusion to suggest acute ischemia. Ventricular system and basal cisterns are patent. No suspicious intracranial signal abnormalities. Normal broderick-white differentiation. Normal posterior fossa. Normal vascular flow voids at the skull base. No extra-axial fluid collections. No mass or mass effect. Mild mucosal thickening in the paranasal sinuses. Mastoid air cells are well aerated. Normal posterior nasopharynx. No hemosiderin on the susceptibly weighted images. Normal optic chiasm and pituitary infundibulum. Temporal lobes and hippocampal formations are normal in appearance. No evidence of mesial temporal sclerosis. Incidental slightly low- lying cerebellar tonsils. No other suspicious findings. MR/MR head wo con* [id number] IMPRESSION: 1. No evidence of restricted diffusion to suggest acute ischemia. 2. No suspicious intracranial signal abnormalities. Normal broderick-white differen tiation. 3. Temporal lobes and hippocampal formations are normal in appearance. No evid ence of mesial temporal sclerosis. 4. No hemosiderin on susceptibility-weighted images. 5. Mild mucosal thickening in the paranasal sinuses.
== END 2024-11-16 10:08 | disposition home or self-care (01) ==
PROVIDERS: PCP Family Medicine; Visit Provider Specialist
DX: R56.9 Unspecified convulsions (principal); G43.909 Migraine, unspecified, not intractable, without status migrainosus; R93.89 Abnormal findings on diagnostic imaging of other specified body structures
CPT/HCPCS: 70551

== ENCOUNTER → 2025-03-29 11:59 | Outpatient (BNVA) | payer MEDICAID, SELFPAY | PROVIDERS: PCP Family Medicine; Visit Provider Nurse Practitioner Psychiatric/Mental Health | DX: Z79.899 Other long term (current) drug therapy (principal) | CPT/HCPCS: 80053; 80061; 83036 ==

== ENCOUNTER 2025-06-07 12:15 | Emergency (ER) | payer MEDICAID, SELFPAY ==
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
--- OUTSIDE RECORDS SUMMARY | 2025-06-07 12:18 | XMS_ITS | Clinical Summary ---
Author Organization [facility] Address [address] [address] Phone Care Team Providers Care Hair Tinter Name Role Phone Lance Roman MD Primary Care Provider [phone] Allergies Active Allergy Reactions Criticality Noted Date Comments Quetiapine Anemia Low 04/07/2025 Medications levETIRAcetam (KEPPRA) 250 mg tablet Take 250 mg by mouth 2 times daily. Active busPIRone (BUSPAR) 5 mg tabletIndication s:ROSAURA (generalized anxiety disorder) Take 1 Tablet (5 mg) by mouth 3 times daily as needed for Anxiety. 90 Tablet 3 04/25/2025 Active ferrous sulfate 325 mg (65 mg iron) tabletIndication s:Anemia, unspecified type Take 1 Tablet (325 mg) by mouth daily. 90 Tablet 2 04/26/2025 Active Active Problems Problem Noted Date Diagnosed Date Temporal lobe epilepsy 04/25/2025 Encounter for blood test 04/12/2025 AIHA (autoimmune hemolytic anemia) 04/07/2025 Abnormal vaginal bleeding 04/07/2025 Encounters Date Type Department Care Team Description 05/18/2025 External Device Data [facility] ABSTRACTION Provider, Abstract 05/10/2025 External Device Data [facility] ABSTRACTION Provider, Abstract 05/10/2025 External Device Data [facility] ABSTRACTION Provider, Abstract 05/10/2025 External Device Data [facility] ABSTRACTION Provider, Abstract 04/26/[address] [address] Neri, Crystal Janine, [employer]INATION [employer] PRODUCTION HEAD Anemia, unspecified type (Primary Dx) 04/26/2025 Results Follow-Up [address] [phone] Neri, Crystal Janine, IMP[employer] COORDINATION [employer] PRODUCTION HEAD CBC WITH DIFFERENTIAL 04/25/2025 10:20 AM CDT Office Visit [facility] [address] [place] [phone] Neri, Crystal Janine, IMPORT COORDINATION AND PRODUCTION HEAD Temporal lobe epilepsy (CMS/HCC) (Primary Dx); History of colon polyps; Family history of colon cancer requiring screening colonoscopy; Abnormal vaginal bleeding; Acute blood loss anemia; PTSD (post-traumatic stress disorder); ROSAURA (generalized anxiety disorder) 04/19/2025 External Device Data STL ABSTRACTION Provider, Abstract 04/19/2025 External Device Data [facility] ABSTRACTION Provider, Abstract 04/19/2025 External Device Data [facility] ABSTRACTION Provider, Abstract 04/18/2025 11:30 AM CDT - 04/18/2025 11:59 PM CDT Hospital Encounter [facility] [address] [phone] Denisse Gaming MD Discharge Disposition: Home or Self Care 04/12/2025 4:55 PM CDT - 04/12/2025 5:20 PM CDT Emergency [place] [address] [phone] Denisse Gaming MD Encounter for blood test (Primary Dx); Abnormal vaginal bleeding; AIHA (autoimmune hemolytic anemia) ([facility]/HCC) Discharge Disposition: Home or Self Care 04/08/2025 Results Follow-Up [place] [address] [place] [address] Tasha Nazario, RN IRON, TIBC, AND PERCENT SATURATION, VITAMIN B12 LEVEL, FOLATE, SERUM, US PELVIS + TRANSVAG NON OB 04/07/2025 5:00 PM CDT - 04/07/2025 8:03 PM CDT Emergency [facility] [address] [phone] Denisse Gaming MD AIHA (autoimmune hemolytic anemia) ([facility]/HCC) (Primary Dx); Abnormal vaginal bleeding Discharge Disposition: Home or Self Care 04/07/2025 Travel from Last 3 Months Social History Tobacco Use Types Packs/Day Years Used Date Smoking Tobacco: Never Smokeless Tobacco: Never Tobacco Cessation:Counseling Given: Yes Alcohol Use Standard Drinks/Week Comments Not Currently [...] on file Sexual Orientation Not on file Last Filed Vital Signs Vital Sign Reading Time Taken Comments Blood Pressure 100/70 04/25/2025 10:45 AM CDT Pulse 62 04/25/2025 10:45 AM CDT Temperature 36.8 C (98.3 F) 04/25/2025 10:45 AM CDT Respiratory Rate 18 04/25/2025 10:45 AM CDT Oxygen Saturation 97% 04/25/2025 10:45 AM CDT Inhaled Oxygen Concentration - - Weight 62.8 kg (138 lb 6.4 oz) 04/25/2025 10:45 AM CDT Height 165.1 cm (5' 5 ) 04/25/2025 10:45 AM CDT Body Mass Index 23.03 04/25/2025 10:45 AM CDT Plan of Treatment Health Maintenance Due Date Last Done Comments DTAP/TDAP/TD VACCINES (1 - Tdap) 2010 HEPATITIS B VACCINES (1 of 3 - 19+ 3-dose series) 02/2010 Preventative Visit-Managed Medicaid 2010 HPV/Cotest (21-29) 2012 HPV VACCINES (1 - 3-dose SCDM series) 2018 CERVICAL CANCER SCREENING 2021 HPV/Cotest (30-65) 2021 PAP SMEAR 2021 INFLUENZA VACCINE (#1) 2025 Procedures Procedure Name Priority Date/Time Associated Diagnosis Comments CBC WITH DIFFERENTIAL Stat 04/25/2025 11:13 AM CDT Acute blood loss anemia US PELVIS + TRANSVAG NON OB Stat 04/18/2025 12:34 PM CDT Abnormal vaginal bleeding CBC WITH DIFFERENTIAL Stat 04/12/2025 11:25 AM CDT FOLATE, SERUM Stat 04/07/2025 5:55 PM CDT VITAMIN B12 LEVEL Stat 04/07/2025 5:5 5 PM CDT IRON, TIBC, AND PERCENT SATURATION Stat 04/07/2025 5:55 PM CDT SEDIMENTATION RATE Stat 04/07/2025 5: 55 PM CDT C-REACTIVE PROTEIN Stat 04/07/2025 5: 55 PM CDT COMPREHENSIVE METABOLIC PANEL Stat 04/07/2025 5:55 PM CDT PTT Stat 04/07/2025 5:55 PM CDT PROTIME-INR Stat 04/07/2025 5:55 PM CDT CBC WITH DIFFERENTIAL Stat 04/07/2025 5:55 PM CDT URINALYSIS MICROSCOPY ONLY Stat 04/07/2025 5:07 PM CDT HCG QUALITATIVE, URINE Stat 5:07 PM CDT URINALYSIS W/REFLEX MICROSCOPIC Stat 04/07/2025 5:07 PM CDT from Last 3 Months Results * (ABNORMAL) CBC WITH DIFFERENTIAL (04/25/2025 11:13 AM CDT) Only the most recent of3 resultswithin the time period is included. WBC 4.3 3.8 - 10.8 Thousand/u L [facility] RBC 4.17 3.80 - 5.10 Million/uL [facility] HEMOGLOBIN 11.1(L) 11.7 - 15.5 g/dL [facility] HEMATOCRIT 37.0 35.0 - 45.0 % [facility] MCV 88.7 80.0 - 100.0 fL [facility] MCH 26.6(L) 27.0 - 33.0 pg [facility] MCHC 30.0(L) 32.0 - 36.0 g/dL [facility] Comment: For adults, a slight decrease in the calculated MCHC value (in the range of 30 to 32 g/dL) is most likely not clinically significant; however, it should be interpreted with caution in correlation with other red cell parameters and the patient's clinical condition. RDW 15.9(H) 11.0 - 15.0 % [facility] PLATELETS 148 140 - 400 Thousand/u L [facility] MPV 10.4 7.5 - 12.5 fL [facility] NEUTROPHIL ABSOLUTE 2,335 1,500 - 7,800 cells/uL [facility] LYMPHOCYTE ABSOLUTE 1,230 850 - 3,900 cells/uL [facility] MONOCYTE ABSOLUTE 374 200 - 950 cells/uL [facility] EOSINOPHIL ABSOLUTE 301 15 - 500 cells/uL [facility] BASOPHILS ABSOLUTE 60 0 - 200 cells/uL [facility] NEUTROPHIL 54.3 % [facility] LYMPHOCYTES 28.6 % [facility] MONOCYTE 8.7 % [facility] EOSINOPHILS 7.0 % [facility] BASOPHILS 1.4 % [facility] Comment: Test Performed at: [facility] [address] [address] MD Blood 04/25/2025 11:1 3 AM CDT 04/26/2025 3:15 AM CDT us Christie Lunapps IMPORT COORDINATION AND PRODUCTION HEAD HEMATOLOGY ORDERABLES Fi nal Result [facility] [phone] [facility] [address] [place] [address] * US PELVIS + TRANSVAG NON OB (04/18/2025 12:34 PM CDT) Anatomical Region Laterality Modality Pelvis Ultrasound 04/18/2025 12:3 4 PM CDT Impressions 04/19/2025 7:02 AM CDT IMPRESSION: 1. Small left ovarian cyst. 2. Right ovary is not definitely identified. 3. Small nabothian cysts of the uterine cervix. Narrative 04/19/2025 7:02 AM CDT Exam: US PELVIS + TRANSVAG NON OB Date/Time of Exam: 04/18/2025 12:34 PM Reason For Exam: See Diagnosis Diagnosis: Abnormal vaginal bleeding Transabdominal and endovaginal ultrasound study was performed on the pelvis. Several small nabothian cysts are seen in the uterine cervix. The uterus is otherwise unremarkable, its olmedo showing normal homogeneous echogenicity. No focal solid uterine lesions are seen. The endometrial stripe is unremarkable measuring 8 mm. The uterus itself measures 12.0 x 8.0 x 4.0 cm. A 1.5 cm simple cyst is present in the left ovary. The right ovary is not definitely identified. the left ovary measures 4.6 x 2.8 x 2.8 cm. There is no evidence of abnormal soft tissue masses in the adnexal regions. No abnormal free fluid collections are seen in the pelvis. Procedure Note Alexey Farfan MD - 04/19/2025 Exam: US PELVIS + TRANSVAG NON OB Date/Time of Exam: 04/18/2025 12:34 PM Reason For Exam: See Diagnosis Diagnosis: Abnormal vaginal bleeding Transabdominal and endovaginal ultrasound study was performed on the pelvis. Several small nabothian cysts are seen in the uterine cervix. The uterus is otherwise unremarkable, its olmedo showing normal homogeneous echogenicity. No focal solid uterine lesions are seen. The endometrial stripe is unremarkable measuring 8 mm. The uterus itself measures 12.0 x 8.0 x 4.0 cm. A 1.5 cm simple cyst is present in the left ovary. The right ovary is not definitely identified. the left ovary measures 4.6 x 2.8 x 2.8 cm. There is no evidence of abnormal soft tissue masses in the adnexal regions. No abnormal free fluid collections are seen in the pelvis. IMPRESSION: 1. Small left ovarian cyst. 2. Right ovary is not definitely identified. 3. Small nabothian cysts of the uterine cervix. us Denisse Gaming MD US ORDERABLES Final Result * FOLATE, SERUM (04/07/2025 5:55 PM CDT) FOLATE, SERUM 13.1 3.1 - 17.5 ng/mL 04/08/2025 4:39 PM CDT [facility] Blood BLOOD SPECIMEN / Unknown Collection / Unknown 04/07/2025 5:55 PM CDT 04/07/2025 6:26 PM CDT us Denisse Gaming MD CHEMISTRY ORDERABLES Final Resu lt Performing Organization Address [facility] Co de Phone Number [facility] CLIA # [id number] [address] [id number] * (ABNORMAL) IRON, TIBC, AND PERCENT SATURATION (04/07/2025 5:55 PM CDT) IRON 209(H) 37 - 145 ug/dL 04/08/2025 4:29 PM CDT [facility] TIBC 322 250 - 450 ug/dL 04/08/2025 4:29 PM CDT [facility] IRON % SATURATION 65(H) 15 - 60 % 04/08/2025 4:29 PM CDT [facility] Blood BLOOD SPECIMEN / Unknown Collection / Unknown 04/07/2025 5:55 PM CDT 04/07/2025 6:26 PM CDT us Denisse Gaming MD CHEMISTRY ORDERABLES Final Resu lt Performing Organization Address [facility] Co de Phone Number [facility] CLIA # [id number] [id number] [place] [address] * PTT (04/07/2025 5:55 PM CDT) PTT 30.1 25.1 - 35.4 seconds 04/07/2025 6:13 PM CDT [facility] Blood BLOOD SPECIMEN / Unknown Collection / Unknown 04/07/2025 5:55 PM CDT 04/07/2025 6:01 PM CDT Denisse Gaming MD HEMATOLOGY ORDERABLES Final Res ult [facility] CLIA # [id number] [address] [place] [address] * (ABNORMAL) SEDIMENTATION RATE (04/07/2025 5:55 PM CDT) ESR (SEDIMENTATION RATE) 21(H) 0 - 20 mm/Hr 04/07/2025 6:08 PM CDT [facility] Blood BLOOD SPECIMEN / Unknown Collection / Unknown 04/07/2025 5:55 PM CDT 04/07/2025 6:01 PM CDT [facility] - 04/07/2025 6:08 PM CDT Tube Lot: #[id number] Exp Date: 09/28/2026 QC1 LOT [id number] EXP.10/03/2025 QC2 LOT [id number] EXP.10/03/2025 Denisse Gaming MD HEMATOLOGY ORDERABLES Final Res ult [facility] CLIA # [id number] [address] [place] [address] * PROTIME-INR (04/07/2025 5:55 PM CDT) PROTIME 13.8 12.1 - 14.3 Seconds 04/07/2025 6:13 PM CDT [facility] INR 1.1 0.9 - 1.1 04/07/2025 6:13 PM CDT [facility] Blood BLOOD SPECIMEN / Unknown Collection / Unknown 04/07/2025 5:55 PM CDT 04/07/2025 6:01 PM CDT us Denisse Gaming MD HEMATOLOGY ORDERABLES Final Res ult Performing Organization Address City/[facility]/ZIP Co de Phone Number [facility] CLIA # [id number] [address] [place] [address] * C-REACTIVE PROTEIN (04/07/2025 5:55 PM CDT) CRP <3.0 <5.0 mg/L 04/07/2025 6:1 6 PM CDT [facility] Blood BLOOD SPECIMEN / Unknown Collection / Unknown 04/07/2025 5:55 PM CDT 04/07/2025 6:01 PM CDT us Denisse Gaming MD CHEMISTRY ORDERABLES Final Resu lt Performing Organization Address [facility]/ZIP Co de Phone Number [facility] CLIA # [id number] [address] [place] [address] * VITAMIN B12 LEVEL (04/07/2025 5:55 PM CDT) VITAMIN B12 431 211 - 946 pg/mL 04/08/2025 4:39 PM CDT [facility] Blood BLOOD SPECIMEN / Unknown Collection / Unknown 04/07/2025 5:55 PM CDT 04/07/2025 6:26 PM CDT us Denisse Gaming MD CHEMISTRY ORDERABLES Final Resu lt Performing Organization Address City/[facility]/ZIP Co de Phone Number [facility] CLIA # [id number] [address] [facility] [place] [address] * (ABNORMAL) COMPREHENSIVE METABOLIC PANEL (04/07/2025 5:55 PM CDT) SODIUM 140 136 - 145 mmol/L 04/07/2025 6:16 PM [facility] POTASSIUM 3.9 3.5 - 5.1 mmol/L 04/07/2025 6:16 PM [facility] CHLORIDE 104 98 - 107 mmol/L 04/07/2025 6:16 PM [facility] CO2 26 22 - 29 mmol/L 04/07/2025 6:16 PM [facility] CALCIUM 10.5(H) 8.6 - 10.0 mg/dL 04/07/2025 6:16 PM [facility] BUN 12 6 - 20 mg/dL 04/07/2025 6:16 PM [facility] CREATININE 0.68 0.51 - 0.95 mg/dL 04/07/2025 6:16 PM [facility] GLUCOSE 122(H) 74 - 99 mg/dL 04/07/2025 6:16 PM [facility] TOTAL PROTEIN 6.7 6.6 - 8.7 g/dL 04/07/2025 6:16 PM [facility] ALBUMIN 4.2 3.5 - 5.2 g/dL 04/07/2025 6:16 PM [facility] BILIRUBIN TOTAL 0.5 0.0 - 1.2 mg/dL 04/07/2025 6:16 PM [facility] ALKALINE PHOSPHATASE 61 35 - 104 U/L 04/07/2025 6:16 PM [facility] AST 23 0 - 35 U/L 04/07/2025 6:16 PM [facility] ALT 12 0 - 35 U/L 04/07/2025 6:16 PM [facility] GFR >60 >=60 mL/min/1.7 3 sq meter 04/07/2025 6:16 PM [facility] Comment:eGFR calculated with 2020 CKD-EPI equation. Vegetarian diet, extremely high or low muscle mass, and may affect results. Cystatin C with Glomerular Filtration Rate is a suitable alternative for these patients. ANION GAP 10 5 - 20 mmol/L 04/07/2025 6:16 PM CDT [facility] Blood BLOOD SPECIMEN / Unknown Collection / Unknown 04/07/2025 5:55 PM CDT 04/07/2025 6:01 PM CDT us Denisse Gaming MD CHEMISTRY ORDERABLES Final Resu lt [facility] CLIA # [id number] [address] [place] [address] * (ABNORMAL) URINALYSIS MICROSCOPY ONLY (04/07/2025 5:07 PM CDT) WBC UA 0-2 0 - 2 /hpf 04/07/2025 5:41 PM CDT [facility] RBC UA 6-10(A) 0 - 2 /hpf 04/07/2025 5:41 PM CDT [facility] BACTERIA UA 1+(A) Negative /hpf 04/07/2025 5:41 PM CDT [facility] EPITHELIAL CELLS, URINE 0-5 0 - 5 /hpf 04/07/2025 5:41 PM CDT [facility] Urine URINE SPECIMEN OBTAINED BY CLEAN CATCH PROCEDURE / Unknown Collection / Unknown 04/07/2025 5:07 PM CDT 04/07/2025 5:29 PM CDT us Denisse Gaming MD URINE ORDERABLES Final Result [facility] CLIA # [id number] [address] [place] [address] * (ABNORMAL) URINALYSIS WITH REFLEX MICROSCOPIC (04/07/2025 5:07 PM CDT) COLOR UA Loly(A) Pale to Dark Yellow 04/07/2025 5:41 PM CDT [facility] CLARITY UA Slightly Cloudy(A) Clear 04/07/2025 5:41 PM CDT [facility] SPECIFIC GRAVITY UA 1.025 1.003 - 1.035 04/07/2025 5:41 PM CDT [facility] PH UA 6.0 5.0 - 8.0 04/07/2025 5:41 PM CDT [facility] LEUKOCYTE ESTERASE UA Negative Negative 04/07/2025 5:41 PM CDT [facility] NITRITE UA Negative Negative 04/07/2025 5:41 PM CDT [facility] PROTEIN UA 2+(A) Negative 04/07/2025 5:41 PM CDT [facility] GLUCOSE UA Negative Negative 04/07/2025 5:41 PM CDT [facility] KETONES UA Trace(A) Negative 04/07/2025 5:41 PM CDT [facility] UROBILINOGEN UA 0.2 <2.0 mg/dL 5:41 PM CDT [facility] BILIRUBIN UA Negative Negative 04/07/2025 5:41 PM CDT [facility] BLOOD UA 3+(A) Negative 04/07/2025 5:41 PM T [facility] Urine URINE SPECIMEN OBTAINED BY CLEAN CATCH PROCEDURE / Unknown Collection / Unknown 04/07/2025 5:07 PM CDT 04/07/2025 5:29 PM CDT Denisse Gaming MD URINE ORDERABLES Final Result [facility] CLIA # [id number] [address] [place] [address] * (ABNORMAL) HCG QUALITATIVE, URINE (04/07/2025 5:07 PM CDT) HCG QUAL URINE Negative Negative 04/07/2025 5:36 PM CDT [facility] COLOR UA Loly(A) Pale to Dark Yellow 04/07/2025 5:36 PM CDT [facility] CLARITY UA Slightly Cloudy(A) Clear 04/07/2025 5:36 PM CDT [facility] Urine URINE SPECIMEN OBTAINED BY CLEAN CATCH PROCEDURE / Unknown Collection / Unknown 04/07/2025 5:07 PM CDT 04/07/2025 5:29 PM CDT us Denisse Gaming MD URINE ORDERABLES Final Result [facility] CLIA # [id number] [address] [place] [address] from Last 3 Months Insurance [employer] [facility] [id number] Care Teams Hair Tinter Relationship Specialty Start Date End Date Lance Roman MD [address] [phone] PCP - General Family Practice 04/25/25
--- OUTSIDE RECORDS SUMMARY | 2025-06-07 12:18 | XMS_ITS | Encounter Summary ---
Author Organization [facility] Address [address] [place] [address] Care Team Providers Care Housekeeper Head Name Role Phone Lance Roman MD Primary Care Provider [phone] Reason for Visit * Reason Onset Date Comments Results 04/26/2025 Encounter Details Date Type Department Care Team (Latest Contact Info) Description 04/26/2025 Results Follow-Up [facility] [place] [address] [phone] Christie He, [facility] [address] [phone] CBC WITH DIFFERENTIAL Social History Tobacco Use Types Packs/Day Years Used Date Smoking Tobacco: Never Smokeless Tobacco: Never Alcohol Use Standard Drinks/Week Comments [...] on file documented as of this encounter Miscellaneous Notes * Telephone Encounter - Sally Lucas RN - 04/26/2025 8:30 AM CDT 04/26/2025 8:30 AM Called and notified patient of results. Voiced understanding. She states that she is taking a multivitamin but doesn't think it has iron in it, so she would like a script sent to [facility]. Sally XAVIER * Telephone Encounter - Sally Lucas, DUC - 04/26/2025 8:30 AM CDT ----- Message from Christie He sent at 04/26/2025 7:54 AM CDT ----- Hemoglobin is steady at 11.1. is she taking any iron? If not I will send her some in. Which pharmacy? KATJA Andres, 04/26/2025 7:54 AM ----- Message ----- From: Baljinder Acosta Incoming [facility] Results Sent: 04/26/2025 7:36 AM CDT To: KATJA Erazo documented in this encounter Plan of Treatment Not on file documented as of this encounter Visit Diagnoses Not on filedocumented in this encounter Care Teams Housekeeper Head Relationship Specialty Start Date End Date Lance Roman MD [address] [phone] PCP - General Family Practice 04/25/25 documented as of this encounter
--- NOTE | 2025-06-07 12:19 | XR_ITS ---
WS: [id number] Portable AP upright chest, 06/07/2025 Clinical Data: dyspnea/cough Comparison: Portable chest, 07/18/2023 Findings: No nodules, masses or effusions are seen. The heart is normal. The pulmonary vascularity is not increased. No pneumonia or pneumothorax is seen. XR/XR chest 1V portable [id number] Impression: Negative chest.
[2025-06-07 12:22] VITALS: BP 101/68; PULSE 93; RESP 24; TEMP 36.8; O2SAT 96; BMI 21.6
[2025-06-07 12:53] LABS: Hematocrit 35.3 % (36-47); Hemoglobin 11.90 g/dL (11.27-16.99); Mean Corpuscular HGB Conc 33.7 g/dL (30-55); Mean Corpuscular Hemoglobin 27.9 pg (27-33); Mean Corpuscular Volume 82.9 fl (85-98); Nucleated Red Blood Cells % 0 %; Platelet Count 140 10^3/cmm (157-399); Red Blood Count 4.26 10^6/uL (3.85-5.65); White Blood Count 6.18 10^3/uL (3.29-11.43)
[2025-06-07 12:57] VITALS: PULSE 64; RESP 18; O2SAT 91
[2025-06-07 13:01] VITALS: PULSE 99
[2025-06-07] MEDS: methylPREDNISolone sod succ 125 mg/2 mL INJ IVP (13:03)
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
[2025-06-07 13:25] LABS: Slide Review Slide Review Perform
[2025-06-07 13:28] VITALS: BP 115/81; PULSE 114; O2SAT 93
== END 2025-06-07 13:40 | disposition home or self-care (01) ==
PROVIDERS: Emergency Provider Family Medicine; PCP Family Medicine
DX: J45.901 Unspecified asthma with (acute) exacerbation (principal); Z72.0 Tobacco use
CPT/HCPCS: 71045; 85025; 94640; 96374; 99284; J2919; J9999